=== PATIENT | male | born 1990 | race Hispanic/Latino ===

== ENCOUNTER 2022-05-22 16:07 | Emergency (ER) | payer BC ==
[~2022-05-22] VITALS: Ht 167.6 cm; Wt 95.3 kg
[2022-05-22 16:52] VITALS: BP 128/76
== END 2022-05-22 17:05 | disposition home or self-care (01) ==
LOC: EDH 16:07
DX: G43.909 Migraine, unspecified, not intractable, without status migrainosus (principal); F17.200 Nicotine dependence, unspecified, uncomplicated
CPT/HCPCS: 99281